=== PATIENT | female | born 1955 | race Caucasian/White ===

== ENCOUNTER → 2019-05-30 | Outpatient (CLI) | payer OTHER | LOC: RAD 15:50 | DX: Z12.31 Encounter for screening mammogram for malignant neoplasm of breast (principal) ==

== ENCOUNTER → 2019-06-20 | Outpatient (CLI) | payer OTHER ==
[~2019-06-20] MED LIST: CRESTOR20 MG PO; KEPPRA 500 MG500 M1 PO; XARELTO20 MG PO
== END ==
LOC: SJCVC 13:14
DX: R94.31 Abnormal electrocardiogram [ECG] [EKG] (principal); R01.1 Cardiac murmur, unspecified; I82.402 Acute embolism and thrombosis of unspecified deep veins of left lower extremity; I10 Essential (primary) hypertension; E78.5 Hyperlipidemia, unspecified; R53.83 Other fatigue; Z86.711 Personal history of pulmonary embolism; Z87.891 Personal history of nicotine dependence; Z79.01 Long term (current) use of anticoagulants

== ENCOUNTER 2019-06-22 15:33 | Inpatient (IN) | payer OTHER ==
[~2019-06-22] VITALS: Ht 172.7 cm; Wt 69.9 kg
--- NOTE | 2019-06-22 15:44 | NUR ---
ATTEMPT TO CALL ER CONTACT ON FACE SHEET, ADDIE. MESSAGE LEFT IT WENT STRAIGHT TO VM
[2019-06-22] MEDS ORDERED: XARELTO20 MG PO (16:17)
[2019-06-22 16:18] LABS: ABSOLUTE NEUTROPHILS 2.7 thou/uL (1.4-8.2); BASOPHILS 0.8 % (0.0-2.0); EOSINOPHILS 0.7 % (0.0-3.0); HEMATOCRIT 36.9 % (37.0-47.0); LYMPHOCYTES 30.2 % (24.0-44.0); MCH 26.1 pg (26.0-34.0); MCHC 32.4 g/dL (28.0-37.0); MCV 80.5 fL (80.0-100.0); MONOCYTES 8.7 % (1.0-8.0); PLATELET COUNT 180 thou/uL (150-400); POLYS 59.6 % (36.0-66.0); RBC 4.58 mil/uL (4.20-5.00); RDW 14.6 % (10.5-14.5); WBC 4.6 thou/uL (4.0-11.0)
[2019-06-22] MEDS ORDERED: CRESTOR20 MG PO (16:18)
[2019-06-22 16:22] LABS: ANION GAP 7 mmol/L (7-16); BUN 31 mg/dL (7-18); CALCIUM 9.7 mg/dL (8.5-10.1); CHLORIDE 103 mmol/L (98-107); CO2 28 mmol/L (21-32); CREATININE 0.8 mg/dL (0.6-1.0); GLUCOSE 85 mg/dL (74-106); POTASSIUM 3.7 mmol/L (3.5-5.1); SODIUM 138 mmol/L (136-145)
[2019-06-22 16:29] LABS: APTT 30.6 Seconds (24.5-32.8); INR 1.1; PROTIME 11.4 Seconds (9.3-11.4)
[2019-06-22 16:32] LABS: ALBUMIN 3.5 g/dL (3.4-5.0); MAGNESIUM 1.9 mg/dL (1.8-2.4); SGOT 22 U/L (15-37); SGPT 27 U/L (30-65); TOTAL BILIRUBIN 0.3 mg/dL (<0.1-1.0); TOTAL PROTEIN 8.1 g/dL (6.4-8.2); TROPONIN-I <0.06 ng/mL (<0.06)
[2019-06-22 16:51] LABS: URINE BILIRUBIN NEGATIVE (Negative); URINE BLOOD NEGATIVE (Negative); URINE CLARITY CLEAR; URINE COLOR YELLOW; URINE GLUCOSE-RANDOM* NEGATIVE (Negative); URINE KETONES NEGATIVE (Negative); URINE LEUKOCYTES-REFLEX TRACE (Negative); URINE NITRITE-REFLEX NEGATIVE (Negative); URINE PROTEIN (DIPSTICK) NEGATIVE (Negative); URINE SPECIFIC GRAVITY 1.025 (1.005-1.035); URINE UROBILINOGEN 0.2 E.U./dl (0.2-1.0)
[2019-06-22 16:59] LABS: AMP/METHAMP Negative (Negative); BARBITURATES Negative (Negative); BENZODIAZEPINES Negative (Negative); COCAINE Negative (Negative); METHADONE Negative (Negative); OPIATES Negative (Negative); PCP Negative (Negative)
[2019-06-22 20:21] VITALS: BP 122/81
[2019-06-22 21:16] VITALS: BP 126/75
[2019-06-23 00:23] VITALS: BP 120/79
--- NOTE | 2019-06-23 01:01 | NUR ---
PATIENT IS A NEW ADMIT TO THE UNIT THIS SHIFT. SHE ARRIVED BY CART FROM ER AND WAS ABLE TO AMBULATE TO THE BED WITHOUT INCIDENT. PATIENT IS ALERT AND ORIENTED AND IS ABLE TO PARTICIPATE IN ADMISSION PROCESS. NURSE IS ON A ONE TO ONE FOR SI BUT DENIES TRYING TO HURT SELF OR OTHERS. NURSE SCRUBBED THE ROOM OF HARMFUL OBJECTS AND HAS COMPLETED ADMISSION PROCESS AND INITIATE PLAN OF CARE.
[2019-06-23 03:07] LABS: GLYCOHEMOGLOBIN (HGB A1C) 5.1 % (4.8-5.6)
[2019-06-23 04:40] VITALS: BP 114/76
[2019-06-23 06:19] LABS: CHOLESTEROL 358 mg/dL (<200); HDL CHOLESTEROL 92 mg/dL (>40); LDL CHOLESTEROL 257 mg/dL (<100); TC:HDL 3.9 Ratio (Not establshd); TRIGLYCERIDE 46 mg/dL (<150); VLDL 9 mg/dL (<40)
[2019-06-23 06:33] LABS: SERUM ASSESSMENT Clear
[2019-06-23 08:47] VITALS: BP 149/97
[2019-06-23 11:10] VITALS: BP 116/74
--- NOTE | 2019-06-23 12:03 | 2DMMODE ---
[facility] [email or web address] [address] 2 D/M-MODE ECHOCARDIOGRAM Name: SON MONTENEGRO Jeison Room #: 360-P [facility] IN .R.#: [id number] Admission: 06/22/19 Attend Phys: Landry Thornton, Discharge: Date of : 53 Report #: [id number] THIS REPORT FOR: //name// APPROVED REPORT Study performed: 06/23/2019 11:12:57 EXAM: Comprehensive 2D, Doppler, and color-flow Echocardiogram Patient Location: Bedside Room #: 360 Status: routine BSA: 1.81 HR: 67 bpm BP: 149/97 mmHg Rhythm: NSR Other Information Study Quality: Adequate Indications Murmur Eleuteriore 2D Dimensions RVDd: 37.98 mm IVSd: 10.43 (7-11mm) LVOT Diam: 19.50 (18-24mm) LVDd: 41.39 mm PWd: 10.10 (7-11mm) Ascending Ao: 30.77 (22-36mm) LVDs: 28.54 (25-40mm) Aortic Root: 24.60 mm IVC: 16.00 mm Volumes Left Atrial Volume (Systole) Single Plane 4CH: 55.06 mL Single Plane 2CH: 37.18 mL LA ESV Index: 29.00 mL/m2 Aortic Valve AoV Peak Vlad.: 1.60 m/s AO Peak Gr.: 10.26 mmHg LVOT Max P.79 mmHg LVOT Max V: 0.97 m/s JOSE RAMON Vmax: 1.81 cm2 AI Vmax: 4.30 m/s AI [place]: 1.86 m/s2 AI PHT: 669.68 ms [facility] [place] [address] 2 D/M-MODE ECHOCARDIOGRAM Name: SON MONTENEGRO Room #: 360-[facility] IN ..#: [id number] Admission: 06/22/19 Attend Phys: Landry Thornton, Discharge: Date of : 53 Report #: [id number] Mitral Valve E/A Ratio: 1.1 MV Decel. Time: 232.98 ms MV E Max Vlad.: 0.98 m/s MV A Vlad.: 0.92 m/s MV PHT: 67.56 ms IVRT: 87.66 ms Pulmonary Valve PV Peak Vlad.: 1.05 m/s PV Peak Gr.: 4.41 mmHg Pulmonary Vein P Vein S: 0.36 m/s P Vein A: 0.26 m/s P Vein D: 0.29 m/s P Vein A Dur.: 115.3 msec P Vein S/D Ratio: 1.24 Tricuspid Valve TR Peak Vlad.: 2.38 m/s TR Peak Gr.: 22.62 mmHg PA Pressure: 28.00 mmHg Left Ventricle The left ventricle is normal size. There is normal LV segmental wall motion. There is normal left ventricular wall thickness. Left ventricular systolic function is normal. The left ventricular ejection fraction is within the normal range. LVEF is 55-60%. The left ventricular diastolic function is normal. Right Ventricle The right ventricle is normal size. The right ventricular systolic function is normal. Atria The left atrium size is normal. The right atrium size is normal. Aortic Valve The aortic valve is normal in structure. Mild aortic regurgitation. There is no aortic valvular stenosis. Mitral Valve The mitral valve is normal in structure. Trace mitral regurgitation. No evidence of mitral valve stenosis. Tricuspid Valve The tricuspid valve is normal in structure. [place] [id number] 2 D/M-MODE ECHOCARDIOGRAM Name: SON MONTENEGRO Room #: 360-P [facility] IN .R.#: [id number] Admission: 06/22/19 Attend Phys: Landry Thornton, Discharge: Date of : 53 Report #: [id number] regurgitation. Estimated PAP 28 mmHg. There is no pulmonary hypertension. Pulmonic Valve The pulmonary valve is normal in structure. There is no pulmonic valvular regurgitation. Great Vessels The aortic root is normal in size. IVC is normal in size and collapses >50% with inspiration. Pericardium There is no pericardial effusion. <Conclusion> The left ventricle is normal size. There is normal left ventricular wall thickness. Left ventricular systolic function is normal. The right ventricle is normal size. The left atrium size is normal. Mild aortic regurgitation. Trace mitral regurgitation. There is mild tricuspid regurgitation. Estimated PAP 28 mmHg. <ELECTRONICALLY SIGNED> By: Wayne Dubose MD 06/23/191202 02 02 Wayne Dubose MD /INF
[2019-06-23] MEDS ORDERED: KEPPRA 500 MG500 M1 PO (13:46)
[2019-06-23 14:04] VITALS: BP 116/74
--- NOTE | 2019-06-23 14:23 | EKG ---
[address] [address] ELECTROCARDIOGRAM REPORT Name: SON MONTENEGRO Room #: 360-P [facility] IN ..#: [id number] Admission: 06/22/19 Attend Phys: Landry Thornton MD Discharge: Date of : 53 Report #: [id number] THIS REPORT FOR: //name// [facility] ED Test Date: 2019-06-22 Test Time: 16:03:25 Pat Name: SON MONTENEGRO Department: Room: Gender: [employer] Driver: [facility] : 1955 Requested By: Clem Hernandez Order Number: [id number] MD: Lonny Álvarez Measurements Intervals [place] Rate: 62 P: 71 NH: 173 QRS: 7 QRSD: 103 T: 65 QT: 428 QTc: 435 Interpretive Statements Sinus rhythm No previous ECG available for comparison Electronically Signed On 06-23-2019 14:23:13 [employer] by Lonny Álvarez [email or web address] <ELECTRONICALLY SIGNED> By: Lonny Álvarez MD 06/23/19 1423 1603 02 Lonny Álvarez MD /[facility]
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
== END 2019-06-23 15:21 | disposition home or self-care (01) | DRG 101 ==
LOC: ER 15:33 → 3W 21:16 → ER 21:20 → 3W 21:53
PROVIDERS: Emergency Medicine; Nurse Practitioner; ADMIT Internal Medicine
DX: G40.109 Localization-related (focal) (partial) symptomatic epilepsy and epileptic syndromes with simple partial seizures, not intractable, without status epilepticus (principal); E78.5 Hyperlipidemia, unspecified; Z79.899 Other long term (current) drug therapy; Z87.891 Personal history of nicotine dependence; Z88.5 Allergy status to narcotic agent; Z88.0 Allergy status to penicillin; Z86.718 Personal history of other venous thrombosis and embolism; Z79.01 Long term (current) use of anticoagulants
CPT/HCPCS: 10879

== ENCOUNTER → 2019-07-20 | Outpatient (CLI) | payer OTHER | LOC: SJCVCIMAG 08:07 | DX: I08.2 Rheumatic disorders of both aortic and tricuspid valves (principal); I27.20 Pulmonary hypertension, unspecified; I10 Essential (primary) hypertension; E78.5 Hyperlipidemia, unspecified; I82.402 Acute embolism and thrombosis of unspecified deep veins of left lower extremity; Z88.5 Allergy status to narcotic agent; Z88.0 Allergy status to penicillin; Z79.899 Other long term (current) drug therapy ==